=== PATIENT | female | born 1965 | race Two or more races ===

== ENCOUNTER 2024-08-21 08:47 | Outpatient (AMB) | payer MEDICAID, SELFPAY ==
--- NOTE | 2024-08-21 08:58 | ORTHONT_ITS ---
Vital signs 08/21/24 09:00 Height 1.52 m Height Method Stated Weight 75.325 kg Weight Measurement Method Standing Scale BMI 32.4 BP 126/85 H Blood Pressure Source Automatic Cuff Blood Pressure Location Left Upper Arm Position Sitting Respiration 18 Pulse 76 Pulse Source Monitor Temp 97.3 F Temp Source Temporal Artery Scan Pulse Oximetry (%) 95 Oxygen Delivery Method Room Air Med/Allergies Allergies & Medications Allergies No Known Allergies Allergy (Verified 08/21/24 09:03) Medication Reconciliation amlodipine 5 mg tablet 5 mg PO QDAY 08/21/24 [History Confirmed 08/21/24] celecoxib 100 mg capsule 100 mg PO BID 08/21/24 [History Confirmed 08/21/24] lisinopril 30 mg tablet 30 mg PO QDAY 08/21/24 [History Confirmed 08/21/24] Exam Exam Patient is in no acute distress and is cooperative with the examination today. Breathing is nonlabored. In no respiratory distress. Bilateral extremities were evaluated and demonstrates sensation intact to light touch. Palpable pedal pulses are present. No significant edema is present. Bilateral hips were examined. The patient has no pain with log roll of the hips. Internal rotation to 30 degrees and external rotation to 30 degrees is painless. Negative FADIR. The left knee was examined. The left knee is in varus alignment. Range of motion from 0-115 degrees. Knee is stable to varus and valgus as well as AP translation with <5mm. Patient has a negative McMurrays. There is no pain with patellofemoral compression and no crepitus noted. The knee is tender to palpation medially. The right knee was also examined. The right knee is in varus alignment. Range of motion from 0-120 degrees. Knee is stable to varus and valgus as well as AP translation with <5mm. Patient has a negative McMurrays. There is no pain with patellofemoral compression and no crepitus noted. The knee is tender to palpation medially. Nonweightbearing x-rays were reviewed. This demonstrates mild arthritis of both knees. I would like to get weightbearing x-rays Assessment and Plan Problem List (1) Degenerative arthritis of knee, bilateral: Status: Acute Plan: Patient is a 59-year-old female with bilateral knee arthritis of significant severity. We discussed nonoperative and operative options. I would like to see weightbearing x-rays to better evaluate the severity of the arthritis. 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 Level 4 ([id number]) MA Intake Visit Data Collection New Patient or Established: Established Patient (seen at [facility] within 3 years) Reason for Visit:: OSTEOARTHRITIS BILATERAL KNEE Seen by Clinical Staff ONLY (RN/MA): No Treasury Analyst Required: Yes PCP or OBGYN visit in last 3 months: Yes Hx Now: No Do You Feel Safe at Home: Yes Authorities Contacted: N/A Questionairres Past Medical History Past Medical History Have you ever been diagnosed with any of the following: Respiratory Problems Smoking: No Smoking Cessation Counseling: No Smoking Exposure: No Subjective Visit Visit for: new patient and knee (BILATERAL) Immunization / Flu Flu Vaccine in the Last 12 Months: No Flu Vaccine Exclusion Criteria: Refused by Patient History of Present Illness Chief complaint: Bilateral knee pain Patient is a 59-year-old female with bilateral knee pain of equal severity. She reports it is bothering her. She has tried physical therapy and Celebrex in the past. The right knee pain is worse than the left. Personal History Occupation: [employer] Pain Pain level (0-10): 6 Pain duration: ALL DAY Pain location: inside (medial), outside (lateral) and anterior Pain quality: other (specify) (PULSATING) Associated signs & symptoms: stiffness Ambulatory data Ambulatory device: none Treatments Improvement with previous injections: No Improvement with PT: No Improvement with NSAIDS: no Review of Systems Review of Systems: All systems negative unless otherwise noted in HPI.
[2024-08-21 09:00] VITALS: BP 126/85; PULSE 76; RESP 18; TEMP 36.3; O2SAT 95; BMI 32.4
--- NOTE | 2024-08-21 09:12 | XR_ITS ---
Examination: Bilateral knees 2 views Right lateral knee left lateral knee 2 views Bilateral axial knees single view Technique: Bilateral AP knees standing single view, bilateral PA knees flexion single view Standing right lateral knee left lateral knee 2 views Bilateral axial knees single view Exam date and time: August 21, 2024 0821 hrs. Indications: Bilateral knee pain beginning 2 years ago. Findings: Mild to moderate narrowing medial joint space right knee Moderate narrowing medial joint space left knee No fracture or dislocation No opaque foreign bodies Impression: Mild to moderate narrowing medial joint space right knee Moderate narrowing medial joint space left knee
== END 2024-08-21 09:18 | disposition home or self-care (01) ==
PROVIDERS: PCP Family Medicine; Referring Provider Family Medicine; Supervising Provider Orthopaedic Surgery Adult Reconstructive Orthopaedic Surgery; Visit Provider Orthopaedic Surgery Adult Reconstructive Orthopaedic Surgery
DX: M17.0 Bilateral primary osteoarthritis of knee (principal)
CPT/HCPCS: 73564; 99204; G0463

== ENCOUNTER 2024-09-11 08:01 | Outpatient (AMB) | payer MEDICAID, SELFPAY ==
[2024-09-11 08:08] VITALS: BP 119/82; PULSE 70; RESP 18; TEMP 36.6; O2SAT 98; BMI 32.8
--- NOTE | 2024-09-11 08:08 | PD.ORTHCLVIS ---
Vital signs 09/11/24 08:08 Height 1.52 m Height Method Stated Weight 76.005 kg Weight Measurement Method Standing Scale BMI 32.8 BP 119/82 Blood Pressure Source Automatic Cuff Blood Pressure Location Right Upper Arm Position Sitting Respiration 18 Pulse 70 Pulse Source Monitor Temp 97.8 F Temp Source Temporal Artery Scan Pulse Oximetry (%) 98 Oxygen Delivery Method Room Air Med/Allergies Allergies & Medications Allergies No Known Allergies Allergy (Verified 09/11/24 08:12) Medication Reconciliation amlodipine 5 mg tablet 5 mg PO QDAY 08/21/24 [History Confirmed 09/11/24] celecoxib 100 mg capsule 100 mg PO BID 08/21/24 [History Confirmed 09/11/24] lisinopril 30 mg tablet 30 mg PO QDAY 08/21/24 [History Confirmed 09/11/24] Exam Exam Patient is in no acute distress and is cooperative with the examination today. Breathing is nonlabored. In no respiratory distress. Bilateral extremities were evaluated and demonstrates sensation intact to light touch. Palpable pedal pulses are present. No significant edema is present. Bilateral hips were examined. The patient has no pain with log roll of the hips. Internal rotation to 30 degrees and external rotation to 30 degrees is painless. Negative FADIR. The left knee was examined. The left knee is in varus alignment. Range of motion from 0-115 degrees. Knee is stable to varus and valgus as well as AP translation with <5mm. Patient has a negative McMurrays. There is no pain with patellofemoral compression and no crepitus noted. The knee is tender to palpation medially. The right knee was also examined. The right knee is in varus alignment. Range of motion from 0-120 degrees. Knee is stable to varus and valgus as well as AP translation with <5mm. Patient has a negative McMurrays. There is no pain with patellofemoral compression and no crepitus noted. The knee is tender to palpation medially. Nonweightbearing x-rays were reviewed. This demonstrates mild arthritis of both knees. I would like to get weightbearing x-rays Weight bearing xrays demonstrate mild to moderate arthritise Assessment and Plan Problem List (1) Degenerative arthritis of knee, bilateral: Status: Acute Plan: Patient is a 59-year-old female with bilateral knee arthritis of significant severity. We discussed nonoperative and operative options. She has mild to moderate arthritis. She would like an injection of the right knee today. Recommend knee cortisone injection as patient would like to proceed with conservative treatment at this time. The risks and benefits of the procedure were reviewed with the patient and patient gave verbal consent to continue with the procedure. Procedure: performed by Dr. Mg Using sterile technique the Right knee was thoroughly prepped with alcohol, and approximately 1 cc of Kenalog 40 mg/mL and 4 cc of 1% lidocaine was injected without resistance into the medial tibial femoral joint space. The patient tolerated the procedure. Office Procedures GNS Level of Care Nursing/Assessment Patient Status: Established Patient Nursing Assessment/Reassesment: Medication Reconciliation, Update PMH in EMR and Vital Signs Coordination of Care: Complex Care and Chronic Disease 1-5, Education Complex Pt/Fam, Consent,records obtained, informed consent, Results/Orders obtained and Staff clarify orders Special Needs: Language special needs Established Patient Charge Established Patient Point Assignment: 95 Established Patient Point Charge: EP Level 3 (80-115) Surgical Proc/IM SQ injection Major Surgical Procedure: Yes (KNEE INJECTION) Medication Given Medication Given Medication Given: Yes Documented Dose Given: 4 Route: Infiitration Medication Given Medication Given Medication Given: Yes Documented Dose Given: 1 Route: Infiitration Office Meds Xylocaine 10 mg/mL (1 %) injection solution Performing Provider: Vignesh Mg MD Performing Location: [facility] Administered by: Vignesh Mg MD on 09/11/24 08:34 Dose Route Admin Location Dispensed Lot Number Expiration Date [facility] Income Tax Preparer 20 mL Infiltration 20 mL [id number] 12/11/27 74133-938-91 [facility] triamcinolone acetonide 40 mg/mL suspension for injection Performing Provider: Vignesh Mg MD Performing Location: [facility] Administered by: Vignesh Mg MD on 09/11/24 08:34 Dose Route Admin Location Dispensed Lot Number Expiration Date [facility] Income Tax Preparer 40 mg intra-articular KNEE 1 mL [id number] 11/09/25 8394-6907-70 TEVA PARENTERAL [place] Intake Visit Data Collection New Patient or Established: Established Patient (seen at [facility] within 3 years) Reason for Visit:: F/U XRAYS Seen by Clinical Staff ONLY (RN/MA): No Verbal consent obtained for Telemed visit?: No Management Nurse Rn Required: Yes PCP or OBGYN visit in last 3 months: Yes Hx Now: No Do You Feel Safe at Home: Yes Authorities Contacted: N/A Questionairres Past Medical History Past Medical History Have you ever been diagnosed with any of the following: Respiratory Problems Smoking: No Smoking Cessation Counseling: No Smoking Exposure: No Subjective Visit Visit for: follow up visit, knee and x-rays Immunization / Flu Flu Vaccine in the Last 12 Months: No Flu Vaccine Exclusion Criteria: No Exclusion Criteria History of Present Illness Chief complaint: F/U XRAYS Patient is a 59-year-old female with bilateral knee pain of equal severity. She reports it is bothering her. She has tried physical therapy and Celebrex in the past. The right knee pain is worse than the left. Personal History Occupation: [employer] Red flag PMH: BMI BMI Counceling provided: Yes Pain Pain level (0-10): 5 Pain duration: ALL DAY Pain location: inside (medial), outside (lateral), anterior and posterior Pain quality: sharp, dull and aching Pain timing: increases with activity Associated signs & symptoms: none Ambulatory data Ambulatory device: none Treatments Improvement with previous injections: No Improvement with PT: No Improvement with NSAIDS: no Review of Systems Review of Systems: All systems negative unless otherwise noted in HPI.
== END 2024-09-11 08:41 | disposition home or self-care (01) ==
LOC: HODSRG 08:01
PROVIDERS: PCP Family Medicine; Referring Provider Family Medicine; Supervising Provider Orthopaedic Surgery Adult Reconstructive Orthopaedic Surgery; Visit Provider Orthopaedic Surgery Adult Reconstructive Orthopaedic Surgery
DX: M17.0 Bilateral primary osteoarthritis of knee (principal)
CPT/HCPCS: 20610; 99213; J3301; J3490; G0463

== ENCOUNTER 2024-12-11 08:13 | Outpatient (AMB) | payer MEDICAID, SELFPAY ==
[2024-12-11 08:28] VITALS: BP 139/68; PULSE 66; RESP 18; TEMP 36.1; O2SAT 96; BMI 31.6
--- NOTE | 2024-12-11 08:28 | PD.ORTHCLVIS ---
Vital signs 12/11/24 08:28 Height 1.52 m Height Method Stated Weight 73.17 kg Weight Measurement Method Standing Scale BMI 31.6 BP 139/68 H Blood Pressure Source Automatic Cuff Blood Pressure Location Right Upper Arm Position Sitting Respiration 18 Pulse 66 Pulse Source Monitor Temp 96.9 F Temp Source Temporal Artery Scan Pulse Oximetry (%) 96 Oxygen Delivery Method Room Air Med/Allergies Allergies & Medications Allergies No Known Allergies Allergy (Verified 12/11/24 08:39) Medication Reconciliation amlodipine 5 mg tablet 5 mg PO QDAY 08/21/24 [History Confirmed 12/11/24] celecoxib 100 mg capsule 100 mg PO BID 08/21/24 [History Confirmed 12/11/24] lisinopril 30 mg tablet 30 mg PO QDAY 08/21/24 [History Confirmed 12/11/24] Exam Exam Patient is in no acute distress and is cooperative with the examination today. Breathing is nonlabored. In no respiratory distress. Bilateral extremities were evaluated and demonstrates sensation intact to light touch. Palpable pedal pulses are present. No significant edema is present. Bilateral hips were examined. The patient has no pain with log roll of the hips. Internal rotation to 30 degrees and external rotation to 30 degrees is painless. Negative FADIR. The left knee was examined. The left knee is in varus alignment. Range of motion from 0-115 degrees. Knee is stable to varus and valgus as well as AP translation with <5mm. Patient has a negative McMurrays. There is no pain with patellofemoral compression and no crepitus noted. The knee is tender to palpation medially. The right knee was also examined. The right knee is in varus alignment. Range of motion from 0-120 degrees. Knee is stable to varus and valgus as well as AP translation with <5mm. Patient has a negative McMurrays. There is no pain with patellofemoral compression and no crepitus noted. The knee is tender to palpation medially. Nonweightbearing x-rays were reviewed. This demonstrates mild arthritis of both knees. I would like to get weightbearing x-rays Weight bearing xrays demonstrate mild to moderate arthritis Assessment and Plan Problem List (1) Degenerative arthritis of knee, bilateral: Status: Acute Plan: Patient is a 59-year-old female with bilateral knee arthritis of significant severity. We discussed nonoperative and operative options. She has mild to moderate arthritis. She would like an injection of the right knee today As she had received great relief from the last injection Recommend knee cortisone injection as patient would like to proceed with conservative treatment at this time. The risks and benefits of the procedure were reviewed with the patient and patient gave verbal consent to continue with the procedure. Procedure: performed by Dr. Mg Using sterile technique the Right knee was thoroughly prepped with alcohol, and approximately 1 cc of Kenalog 40 mg/mL and 4 cc of 1% lidocaine was injected without resistance into the medial tibial femoral joint space. The patient tolerated the procedure. Office Procedures GNS Level of Care Nursing/Assessment Patient Status: Established Patient Nursing Assessment/Reassesment: Medication Reconciliation, Update PMH in EMR and Vital Signs Coordination of Care: Complex Care and Chronic Disease 1-5, Education Complex Pt/Fam, Consent,records obtained, informed consent, 1 Ins Authorization, Ref for ancillary service, Results/Orders obtained and Staff clarify orders Special Needs: Language special needs Established Patient Charge Established Patient Point Assignment: 130 Established Patient Point Charge: EP Level 4 (120-155) Surgical Proc/IM SQ injection Major Surgical Procedure: Yes (KNEE INJECTION) Medication Given Medication Given Medication Given: Yes Documented Dose Given: 4 Route: Infiitration Medication Given Medication Given Medication Given: Yes Documented Dose Given: 1 Route: Infiitration Office Meds Xylocaine 10 mg/mL (1 %) injection solution Performing Provider: Vignesh Mg MD Performing Location: [facility] Administered by: Vignesh Mg MD on 12/11/24 11:32 Dose Route Admin Location Dispensed Lot Number Expiration Date [facility] Wage Analyst 20 mL Infiltration 20 mL [id number] 10/11/27 31365-615-16 [facility] triamcinolone acetonide 40 mg/mL suspension for injection Performing Provider: Vignesh Mg MD Performing Location: [facility] Administered by: Vignesh Mg MD on 12/11/24 11:32 Dose Route Admin Location Dispensed Lot Number Expiration Date [facility] Wage Analyst 40 mg intra-articular KNEE 1 mL [id number] 07/12/26 65895-721-40 LULÚ WELLER [place] Intake Visit Data Collection New Patient or Established: Established Patient (seen at [facility] within 3 years) Reason for Visit:: 3 MONTH KNEE INJECTION FOLLOW UP Seen by Clinical Staff ONLY (RN/MA): No Verbal consent obtained for Telemed visit?: No Shoe Trimmer Required: Yes PCP or OBGYN visit in last 3 months: Yes Hx Now: No Do You Feel Safe at Home: Yes Authorities Contacted: N/A Questionairres Past Medical History Past Medical History Have you ever been diagnosed with any of the following: Respiratory Problems Smoking: No Smoking Cessation Counseling: No Smoking Exposure: No Subjective Visit Visit for: follow up visit, knee and x-rays Immunization / Flu Flu Vaccine in the Last 12 Months: No Flu Vaccine Exclusion Criteria: No Exclusion Criteria History of Present Illness Chief complaint: F/U XRAYS Patient is a 59-year-old female with bilateral knee pain of equal severity. She reports it is bothering her. She has tried physical therapy and Celebrex in the past. The right knee pain is worse than the left. She also reports that she has been falling a lot. On further history, she reports that she has a lot of pain that starts in the buttocks and radiates down the right knee. We discussed that it is possible that the weakness that she is having recently is related to The back and this likely will need to be worked up. Personal History Occupation: [employer] Red flag PMH: BMI BMI Counceling provided: Yes Pain Pain level (0-10): 5 Pain duration: ALL DAY Pain location: inside (medial), outside (lateral), anterior and posterior Pain quality: sharp, dull and aching Pain timing: increases with activity Associated signs & symptoms: none Ambulatory data Ambulatory device: none Treatments Improvement with previous injections: No Improvement with PT: No Improvement with NSAIDS: no Review of Systems Review of Systems: All systems negative unless otherwise noted in HPI.
== END 2024-12-11 08:39 | disposition home or self-care (01) ==
LOC: HODSRG 08:13
PROVIDERS: PCP Family Medicine; Referring Provider Family Medicine; Supervising Provider Orthopaedic Surgery Adult Reconstructive Orthopaedic Surgery; Visit Provider Orthopaedic Surgery Adult Reconstructive Orthopaedic Surgery
DX: M17.0 Bilateral primary osteoarthritis of knee (principal); M25.562 Pain in left knee; M25.561 Pain in right knee
CPT/HCPCS: 20610; 99214; J3301; J3490; G0463

== ENCOUNTER 2025-04-30 10:52 | Outpatient (AMB) | payer MEDICAID, SELFPAY ==
--- NOTE | 2025-04-30 11:15 | PD.ORTHCLVIS ---
Vital signs 04/30/25 11:17 Height 1.52 m Height Method Stated Weight 79.407 kg Weight Measurement Method Standing Scale BMI 34.3 BP 123/81 Blood Pressure Source Automatic Cuff Blood Pressure Location Left Upper Arm Position Sitting Respiration 18 Pulse 85 Pulse Source Monitor Temp 97.8 F Temp Source Temporal Artery Scan Pulse Oximetry (%) 97 Oxygen Delivery Method Room Air Med/Allergies Allergies & Medications Allergies No Known Allergies Allergy (Verified 04/30/25 11:19) Medication Reconciliation amlodipine 5 mg tablet 5 mg PO QDAY 08/21/24 [History Confirmed 04/30/25] celecoxib 100 mg capsule 100 mg PO BID 08/21/24 [History Confirmed 04/30/25] lisinopril 30 mg tablet 30 mg PO QDAY 08/21/24 [History Confirmed 04/30/25] Exam Exam Patient is in no acute distress and is cooperative with the examination today. Breathing is nonlabored. In no respiratory distress. Bilateral extremities were evaluated and demonstrates sensation intact to light touch. Palpable pedal pulses are present. No significant edema is present. Bilateral hips were examined. The patient has no pain with log roll of the hips. Internal rotation to 30 degrees and external rotation to 30 degrees is painless. Negative FADIR. The left knee was examined. The left knee is in varus alignment. Range of motion from 0-115 degrees. Knee is stable to varus and valgus as well as AP translation with <5mm. Patient has a negative McMurrays. There is no pain with patellofemoral compression and no crepitus noted. The knee is tender to palpation medially. The right knee was also examined. The right knee is in varus alignment. Range of motion from 0-120 degrees. Knee is stable to varus and valgus as well as AP translation with <5mm. Patient has a negative McMurrays. There is no pain with patellofemoral compression and no crepitus noted. The knee is tender to palpation medially. Nonweightbearing x-rays were reviewed. This demonstrates mild arthritis of both knees. I would like to get weightbearing x-rays Weight bearing xrays demonstrate mild to moderate arthritis Assessment and Plan Problem List (1) Degenerative arthritis of knee, bilateral: Status: Acute Plan: Patient is a 59-year-old female with bilateral knee arthritis of significant severity. We discussed nonoperative and operative options. She has mild to moderate arthritis. She would like an injection of the right knee today As she had received great relief from the last injection Recommend knee cortisone injection as patient would like to proceed with conservative treatment at this time. The risks and benefits of the procedure were reviewed with the patient and patient gave verbal consent to continue with the procedure. Procedure: performed by Dr. Mg Using sterile technique the Right knee was thoroughly prepped with alcohol, and approximately 1 cc of Depo-Medrol 80mg/mL and 4 cc of 0.2% ropivacaine was injected without resistance into the medial tibial femoral joint space. The patient tolerated the procedure. Recommend knee cortisone injection as patient would like to proceed with conservative treatment at this time. The risks and benefits of the procedure were reviewed with the patient and patient gave verbal consent to continue with the procedure. Procedure: performed by Dr. Mg Using sterile technique the leftknee was thoroughly prepped with alcohol, and approximately 1 cc of Depo-Medrol 80mg/mL and 4 cc of 0.2% ropivacaine was injected without resistance into the medial tibial femoral joint space. The patient tolerated the procedure. Office Procedures GNS Level of Care Nursing/Assessment Patient Status: Established Patient Nursing Assessment/Reassesment: Medication Reconciliation, Update PMH in EMR and Vital Signs Coordination of Care: Complex Care and Chronic Disease 1-5, Education Complex Pt/Fam, Consent,records obtained, informed consent, Results/Orders obtained and Staff clarify orders Special Needs: Language special needs Established Patient Charge Established Patient Point Assignment: 95 Established Patient Point Charge: EP Level 3 (80-115) Surgical Proc/IM SQ injection Minor Surgical Procedure: Yes (KNEE INJECTION) Medication Given Medication Given Medication Given: Yes Documented Dose Given: 2 Route: Infiitration Medication Given Medication Given Medication Given: Yes Documented Dose Given: 8 Route: Infiitration Office Meds methylprednisolone acetate 80 mg/mL suspension for injection Performing Provider: Vignesh Mg MD Performing Location: [facility] Administered by: Vignesh Mg MD on 04/30/25 11:38 Dose Route Admin Location Dispensed Lot Number Expiration Date Package [facility] [employer]pper 160 mg intra-articular KNEE 2 mL [id number] 01/10/27 [address]-0 [id number] [employer] ropivacaine (PF) 2 mg/mL (0.2 %) injection solution Performing Provider: Vignesh Mg MD Performing Location: [facility] Administered by: Vignesh Mg MD on 04/30/25 11:38 Dose Route Admin Location Dispensed Lot Number Expiration Date Package NDC NDC [employer] Clipper 40 mL Infiltration KNEE 40 mL [id number] 07/13/27 59400-815-10 [id number] [facility] [place] Intake Visit Data Collection New Patient or Established: Established Patient (seen at [facility] within 3 years) Reason for Visit:: BL KNEE PAIN/FU INJ Seen by Clinical Staff ONLY (RN/MA): No Verbal consent obtained for Telemed visit?: No Machine Whitener Required: Yes PCP or OBGYN visit in last 3 months: Yes Hx Now: No Do You Feel Safe at Home: Yes Authorities Contacted: N/A Questionairres Past Medical History Past Medical History Have you ever been diagnosed with any of the following: Respiratory Problems Smoking: No Smoking Cessation Counseling: No Smoking Exposure: No Subjective Visit Visit for: follow up visit, knee and x-rays Immunization / Flu Flu Vaccine in the Last 12 Months: No Flu Vaccine Exclusion Criteria: No Exclusion Criteria History of Present Illness Chief complaint: FU INJ Patient is a 59-year-old female with bilateral knee pain of equal severity. She reports it is bothering her. She has tried physical therapy and Celebrex in the past. The right knee pain is worse than the left. She also reports that she has been falling a lot. On further history, she reports that she has a lot of pain that starts in the buttocks and radiates down the right knee. She would like bilateral knee injections today Personal History Occupation: [employer] Red flag PMH: BMI BMI Counceling provided: Yes Pain Pain level (0-10): 7 Pain duration: ALL DAY Pain location: inside (medial), outside (lateral), anterior and posterior Pain quality: sharp, dull and aching Pain timing: increases with activity Associated signs & symptoms: none Ambulatory data Ambulatory device: none Treatments Number of previous injections: 1 Improvement with previous injections: Yes Improvement with PT: No Improvement with NSAIDS: no Review of Systems Review of Systems: All systems negative unless otherwise noted in HPI.
[2025-04-30 11:17] VITALS: BP 123/81; PULSE 85; RESP 18; TEMP 36.6; O2SAT 97; BMI 34.3
== END 2025-04-30 11:41 | disposition home or self-care (01) ==
LOC: HODSRG 10:52
PROVIDERS: PCP Family Medicine; Referring Provider Family Medicine; Supervising Provider Orthopaedic Surgery Adult Reconstructive Orthopaedic Surgery; Visit Provider Orthopaedic Surgery Adult Reconstructive Orthopaedic Surgery
DX: M25.562 Pain in left knee (principal); M25.561 Pain in right knee; M17.0 Bilateral primary osteoarthritis of knee; R29.6 Repeated falls
CPT/HCPCS: 20610; 99213; J1010; J2795; G0463